=== PATIENT | male | born 2000 | race Two or more races ===

== ENCOUNTER → 2019-12-23 09:28 | Outpatient (BNVA) | payer OTHER, SELFPAY | PROVIDERS: PCP Pediatrics; Referring Provider Pediatrics; Visit Provider Surgery | DX: L05.91 Pilonidal cyst without abscess (principal); E66.01 Morbid (severe) obesity due to excess calories | CPT/HCPCS: 99203 ==

== ENCOUNTER 2020-01-14 08:47 | Day surgery (SDC) | payer OTHER, SELFPAY ==
[2020-01-10 19:43] VITALS: BMI 56.5
--- NOTE | 2020-01-13 09:42 | HO.ANESPROP2 ---
Documented by User: Dari Ku 01/13/20 09:42 HPI - Anesthesia Eval Consult details Narrative: 19yo M for pilonidal cyst [facility] Past Medical History Medical History Morbid obesity Severe sleep apnea Family History Family History (Updated 12/21/19 @ 09:51 by CHRISTINA Rangel) Father History of stroke Asthma Mother Anemia Discoid lupus Arthritis Hypertension Brother Overweight Surgical History Surgical History History of dental surgery (~2004) Social History Social History Alcohol intake: never Smoking Status: Never smoker Second Hand Smoke Exposure: No Use of substances other than those prescribed or required for medical reasons: No Advance Directives: No Advance Directives Information Provided: No Advance Directives on File: No Recently lost weight without trying: No Meds Allergies Allergy/AdvReac Type Severity Reaction Status Date / Time tramadol [TRAMADOL] Allergy Severe ANAPHYLAXIS, Verified 01/10/20 19:49 hives, and closes throat ketorolac [From TORADOL] Allergy Unknown RASH TACHY Verified 01/10/20 19:49 Home Medications Medication Instructions Recorded Confirmed Type fluticasone propionate 50 1 spray INTRANASAL DAILY 12/23/19 01/10/20 History mcg/actuation nasal spray,suspension loratadine 10 mg tablet 10 mg PO DAILY 12/23/19 01/10/20 History Exam Exam Date and Time: January 13, 2020 0942 Height,Weight and Vital Signs: Height 5 ft 5 in Weight 154.221 kg Assessment and Plan Assessment Anesthesia Assessment: Chart Reviewed Documented by User: Malachi Hardy 01/14/20 10:53 [facility] Past Medical History Medical History Morbid obesity Severe sleep apnea Family History Family History (Updated 12/21/19 @ 09:51 by CHRISTINA Rangel) Father History of stroke Asthma Mother Anemia Discoid lupus Arthritis Hypertension Brother Overweight Surgical History Surgical History History of dental surgery (~2004) Social History Social History Alcohol intake: never Smoking Status: Never smoker Second Hand Smoke Exposure: No Use of substances other than those prescribed or required for medical reasons: No Advance Directives: No Advance Directives Information Provided: No Advance Directives on File: No Recently lost weight without trying: No Meds Allergies Allergy/AdvReac Type Severity Reaction Status Date / Time tramadol [TRAMADOL] Allergy Severe ANAPHYLAXIS, Verified 01/10/20 19:49 hives, and closes throat ketorolac [From TORADOL] Allergy Unknown RASH TACHY Verified 01/10/20 19:49 Home Medications Medication Instructions Recorded Confirmed Type fluticasone propionate 50 1 spray INTRANASAL DAILY 12/23/19 01/10/20 History mcg/actuation nasal spray,suspension loratadine 10 mg tablet 10 mg PO DAILY 12/23/19 01/10/20 History Exam Airway Mallampati Class: III TM Dist: >3cm Neck ROM: Full Heart: RRR Assessment and Plan Final Anesthetic Review NPO: Yes ASA Class: III Anesthetic Plan Anesthetic Plan: GA Disposition: Standard PACU
[2020-01-14 09:04] VITALS: BP 149/98; PULSE 122; RESP 18; TEMP 36.2; O2SAT 95
[2020-01-14] MEDS: ceFAZolin Sodium/Dextrose,Iso 2 GM/50 ML PIGGYBACK IV (09:46)
[2020-01-14] MEDS: Lactated Ringers 1,000 ML 80 ML IVCONT (09:46)
--- NOTE | 2020-01-14 10:36 | MHC.SHP ---
Pre-Procedural Eval Section B Chief Complaint: Pilonidal Cyst without abscess Allergies: Allergies Allergy/AdvReac Type Severity Reaction Status Date / Time tramadol [TRAMADOL] Allergy Severe ANAPHYLAXIS, Verified 01/10/20 19:49 hives, and closes throat ketorolac [From TORADOL] Allergy Unknown RASH TACHY Verified 01/10/20 19:49 Plan Patient has been examined and remains a candidate for the planned procedure
--- NOTE | 2020-01-14 12:03 | PM.OP ---
Brief Operative Note Date of procedure: 01/14/20 Pre-op diagnosis: pilonidal cyst, sacrococcygeal Post-op diagnosis: same Procedure: exc of pilonidal cyst sacrococcygeal area Surgeon: Linus Maynard MD Anesthesia: GETA Greeter Guest Services: Lien Anderson Estimated blood loss (mL): 20 Pathology: other (pilonidal cyst) Condition: stable Disposition: PACU
[2020-01-14 12:18] VITALS: BP 142/86; PULSE 109; RESP 20; TEMP 36.1; O2SAT 98
[2020-01-14 12:23] VITALS: BP 137/84; PULSE 111; RESP 20; O2SAT 98
[2020-01-14 12:27] VITALS: BP 146/98; PULSE 109; RESP 20; O2SAT 97
[2020-01-14 12:32] VITALS: BP 144/98; PULSE 109; RESP 18; O2SAT 97
[2020-01-14 12:50] VITALS: BP 140/91; PULSE 108; RESP 18; TEMP 36.1; O2SAT 95
--- NOTE | 2020-01-14 15:33 | OP_ITS ---
SURGEON: Linus Maynard MD INDICATIONS: The patient is a 19-year-old male with an area of recurrent pain, swelling, and drainage on the sacrococcygeal area consistent with a pilonidal cyst. In view of this, he wanted to proceed with excision. He understood the technique of excision under anesthesia. He was aware of the risks, benefits, and alternatives. PREOPERATIVE DIAGNOSIS: Pilonidal cyst, sacrococcygeal area. POSTOPERATIVE DIAGNOSIS: Pilonidal cyst, sacrococcygeal area. PROCEDURE PERFORMED: Excision of pilonidal cyst, sacrococcygeal area. ESTIMATED BLOOD LOSS: COMPLICATIONS: ANESTHESIA: ASSISTANTS: Lien Anderson PA-C. SPECIMENS: DESCRIPTION OF PROCEDURE: He was placed in prone position in the operating room under general anesthesia via endotracheal tube. The buttocks were retracted at the area of sacrococcyx, retracted with wide tape laterally. The perianal area was prepped and draped in usual sterile fashion. A surgical time-out was done. The patient received 3 g of cefazolin. The examination of the sacrococcygeal area revealed 2 sinuses, 1 sinus just a little bit to the left of the midline and another one caudal to this. There was note of midline pits as well. There was note of induration in the area. I marked a planned line of incision using a pen. I infiltrated this area with lidocaine 1%. I made an elliptical incision on the skin using blade #15, it was carried down to full-thickness skin and subcutaneous fat to excise the entire indurated area. I used electrocautery to divide across the thick subcutaneous tissue to excise the entire diseased tissues and sinuses. This was sent as specimen. The incision measured about 7 cm longitudinally and about 4 cm wide. I created flaps on both area using a thick fat and skin by undermining this using electrocautery. I copiously irrigated. There was note of a bleeder in the subcutaneous layer, which we cauterized with electrocautery. Once hemostasis was ensured, I proceeded to then reapposed the thick subcutaneous fat using Dexon 3-0 interrupted sutures. The skin incision was closed with nylon 2-0 vertical mattress sutures alternating with simple interrupted sutures. The incision was then infiltrated with Marcaine 0.5% for postop analgesia. Dressings were applied. He tolerated procedure well. There were no complications noted. Estimated blood loss about 10 mL. The patient was extubated without difficulty and transferred to recovery room with stable vital signs. MD ANGEL Nelson/DICK / [id number]
== END 2020-01-14 13:30 | disposition home or self-care (01) ==
PROVIDERS: Visit Provider Surgery
PROC: (CPT 11771; principal; 2020-01-14 10:50)
DX: L05.91 Pilonidal cyst without abscess (principal); G47.39 Other sleep apnea; E66.01 Morbid (severe) obesity due to excess calories; Z88.8 Allergy status to other drugs, medicaments and biological substances; Z79.51 Long term (current) use of inhaled steroids; Z79.899 Other long term (current) drug therapy
CPT/HCPCS: 11771; 88304; J0131; J0330; J0690; J1100; J2250; J2405; J3010

== ENCOUNTER 2021-08-10 23:11 | Emergency (ER) | payer OTHER, SELFPAY ==
--- NOTE | 2021-08-10 | ECG_ITS ---
Test Reason : CHEST PAIN Blood Pressure : / mmHG Vent. Rate : 101 BPM Atrial Rate : 101 BPM P-R Int : 116 ms QRS Dur : 082 ms QT Int : 326 ms P-R-T Axes : 041 041 013 degrees QTc Int : 422 ms Sinus tachycardia Otherwise normal ECG No previous ECGs available Referred By: Generic ED Physician Electronically Signed By:Mau Meza
--- NOTE | ~2021-08-10 | XR_ITS ---
EXAMINATION: XR CHEST CLINICAL INFORMATION: Cough COMPARISON: 07/20/2015 TECHNIQUE: 2 views of the chest were obtained. FINDINGS: No significant abnormality is noted involving the heart, lungs, mediastinum, bony thorax or soft tissues. XR/XR chest 2V IMPRESSION: Unremarkable examination.
--- NOTE | ~2021-08-10 | CT_ITS ---
EXAMINATION: CT ANGIOGRAM OF THE CHEST WITH AND WITHOUT CONTRAST (CT PULMONARY ANGIOGRAM FOR PE) CLINICAL INFORMATION: Reason for Exam R sided pleuritic pain elevated ddimer COMPARISON: Chest x-ray 08/10/2021 TECHNIQUE: Prior to contrast administration, noncontrast localization images were obtained. Subsequently, multidetector volumetric imaging was performed from the thoracic inlet to below the diaphragms following the administration of 100 mL Omnipaque 350 intravenous contrast. No contrast reaction reported Sagittal, coronal, and MIP oblique sagittal reformatted images were obtained on the CT workstation, uploaded to PACS, and reviewed. This CT examination was performed using dose optimization techniques as appropriate, variously including the following: *Automated exposure control *Adjustment of mA and/or kV according to patient size (this includes techniques or standardized protocols for targeted exams where dose is matched to indication/reason for exam; i.e. extremities or head) *Use of iterative reconstruction technique Total exam dose-length product 920 mGy-cm FINDINGS: QUALITY OF STUDY/CONTRAST BOLUS: Suboptimal. PULMONARY ARTERIES: No central or proximal segmental pulmonary emboli. Assessment of the more distal vasculature is limited due to bolus timing. THORACIC AORTA: No aneurysm or dissection. LUNG: Scattered patchy groundglass opacities are present bilaterally, most prominently in the left upper lobe and right middle lobe. There is a subpleural right middle lobe nodule measuring 4 mm on image 256/473. PLEURA: No pneumothorax or pleural effusion. MEDIASTINUM: Visualized thyroid gland is unremarkable. Mildly prominent hilar lymph nodes are suspected. Cardiac size is within normal limits; no pericardial effusion. No evidence of septal bowing or right heart strain. CHEST WALL/AXILLA: No axillary or internal mammary lymphadenopathy. OSSEOUS STRUCTURES: No acute or suspicious osseous abnormality. UPPER ABDOMEN: Unremarkable. No reflux of contrast into the hepatic veins to suggest elevated right heart pressures. CT/CT angio chest PE protocol IMPRESSION: 1. No pulmonary embolus identified, though assessment of the distal vasculature is limited due to suboptimal bolus timing. 2. Scattered patchy groundglass opacities bilaterally, most prominently in the left upper and right middle lobes, suggesting an infectious/inflammatory etiology. 3. Right middle lobe subpleural 4 mm lung nodule, statistically likely benign in the absence of clinical risk factors. VTE: negative
[2021-08-10 23:19] VITALS: BP 156/94; PULSE 104; RESP 16; TEMP 36.3; O2SAT 97; BMI 59.9
[2021-08-10 23:36] LABS: Basophils Percent Auto 0.2 % (0-2); Eosinophils Absolute Auto 0.5 X10*3/uL (0.0-0.4); Eosinophils Percent Auto 5.9 % (0-4); Hematocrit 41.7 % (42.0-52.0); Imm Gran Abs Auto 0.03 X10*3/uL (0.00-0.03); Imm Gran Pct Auto 0.3 % (0.0-0.4); Lymphocytes Absolute Auto 3.4 X10*3/uL (1.2-4.9); Lymphocytes Percent Auto 37.7 % (20-40); MANUAL DIFF FLAG NO; Mean Corpuscular HGB Conc 33.6 g/dl (31.0-36.0); Mean Corpuscular Hemoglobin 28.8 pg (27.0-33.0); Mean Corpuscular Volume 85.8 fL (80.0-98.0); Mean Platelet Volume 9.4 fL (9.4-12.4); Monocytes Absolute Auto 1.1 X10*3/uL (0.1-1.2); Monocytes Percent Auto 12.8 % (2-11); Neutrophils Absolute Auto 3.8 x10*3/uL (2.0-8.3); Neutrophils Percent Auto 43.1 % (45-73); Platelet Count 249 X10*3/uL (160-400); Red Blood Count 4.86 X10*6/uL (4.60-5.80); Red Cell Distribution Width 12.9 % (11.0-16.0); White Blood Count 8.9 X10*3/uL (4.8-10.8)
[2021-08-10 23:55] LABS: Alanine Aminotransferase 38 U/L (0-40); Alkaline Phosphatase 83 U/L (39-117); Anion Gap 12 (12-20); Aspartate Amino Transferase 39 U/L (5-37); Bilirubin Total 0.2 mg/dL (0.0-1.0); Blood Urea Nitrogen 8 mg/dL (9-16); Calcium 8.5 mg/dL (8.4-10.2); Carbon Dioxide 28 mmol/L (22-29); Chloride 103 mmol/L (96-108); Creatinine Clr Calc Pharmacy 164.2; Estimated Glomerular Filt Rate > 60; Glucose Random 99 mg/dL (60-115); Potassium 3.8 mmol/L (3.3-5.1); Sodium 139 mmol/L (135-145); Total Protein 7.1 g/dL (6.5-8.0)
[2021-08-10 23:58] LABS: Troponin-I High Sensitivity < 3.5 ng/L (<3.5-35.0)
--- NOTE | 2021-08-11 01:16 | ED_ITS ---
HPI - Chest Pain General Chief Complaint: Upper Respiratory Symptoms Stated Complaint: chest pain & cough Time Seen by Provider: 08/10/21 23:24 Source: patient Mode of arrival: ambulatory Limitations: no limitations History of Present Illness MD complaint: chest pain (cough) Onset (ago): day(s) (4) Timing of current episode: episodic Prior episodes: No Onset: during rest (coughing) Pain location: right chest Severity: moderate Quality: sharp Relieving factors: nothing Exacerbating factors: inspiration and other (coughing) Associated symptoms: dyspnea and cough Treatment prior to arrival: none Related Data Previous Rx's Medication Instructions Recorded azithromycin 250 mg tablet See Rx Instructions PO .COMPLEX #6 08/10/21 tab azithromycin 250 mg tablet See Rx Instructions .ROUTE 08/11/21 .COMPLEX #6 tab prednisone 20 mg tablet 60 mg PO DAILY 5 Days #15 tab 08/11/21 Allergies Allergy/AdvReac Type Severity Reaction Status Date / Time tramadol [TRAMADOL] Allergy Severe ANAPHYLAXIS, Verified 08/10/21 15:58 hives, and closes throat ketorolac [From TORADOL] Allergy Unknown RASH TACHY Verified 08/10/21 15:58 Review of Systems Review of Systems: Constitutional : No Weight loss, No Fever, No Chills ENT/Mouth : No sore throat, No Rhinorrhea Eyes: No Eye Pain, No Swelling Cardiovascular : pos Chest Pain, pos SOB, no Dyspnea on Exertion, No Orthopnea, No Edema, No Palpitations Respiratory : pos Cough, No Sputum Gastrointestinal : pos Nausea, No Vomiting, No Diarrhea, No abdominal Pain, No Hematochezia, No Melena Genitourinary : No Dysuria, No Urinary Frequency Musculoskeletal : No joint pain, No Myalgias, No Joint Swelling Skin : No Skin Lesions, No rash Neuro : No Weakness, No Numbness, No Dizziness, No Headache Psych : No Anxiety/Panic, No Depression Heme/Lymph: No Bruising, No Lymphadenopathy Endocrine : No Polyuria, No Polydipsia All other systems reviewed and are negative [facility] Past Medical History Attestation statement: The following information was validated with the patient. Medical History Morbid obesity Severe sleep apnea Surgical History History of dental surgery (~2004) Family History Family History (Updated 12/14/20 @ 13:48 by Otilia Golden Angela) Father History of stroke Asthma Mother Anemia Discoid lupus Arthritis Hypertension Brother Overweight Social History Social History Housing: House Alcohol intake: never Patient Tobacco Use Status: Never used Tobacco e-Cigarette/Vaping Use: Never Used Second Hand Smoke Exposure: No Advance Directives: No Advance Directives Information Provided: No service: No Current occupational status: employed Physical Exam Vital Signs: Vital Signs: Last Vital Signs Temp 99.1 F 08/11/21 02:00 Pulse 100 08/11/21 02:00 Resp 16 08/11/21 02:00 BP 152/100 H 08/11/21 02:00 Pulse Ox 96 08/11/21 02:00 BMI result Body Mass Index 59.9 Appearance: Alert. Oriented X3. No acute distress. Eyes: Pupils equal, round and reactive to light. ENT: Pharynx normal. Neck: Normal inspection. Neck supple. CVS: Normal heart rate and rhythm. Pulses normal. Respiratory: No respiratory distress. Breath sounds normal. Abdomen: Soft and nontender. Obese Skin: Skin warm and dry. Normal skin color. Normal skin turgor. Extremities: No lower extremity edema. No calf ttp Neuro: Oriented X 3. No motor deficit. No sensory deficit. Course Course Course Narrative: ddimer above threshold - CTA ordered no PE, COVID negative though some GGO MDM - Chest Pain MDM Narrative Medical decision making narrative: 21 yo male hx of obesity, seasonal allergies not on medications comes in with c/o R sided pleuritic chest pain and cough - will need troponin x 1 given symptoms > 6 hours, CXR< EKG and ddimer given obesity if negative will treat as possible bronchitis given sputum production. Dispo per results and findings. Lab Data Result diagrams: 08/10/21 23:27 08/10/21 23:27 Labs: Lab Results 08/10/21 08/10/21 08/10/21 Range/Units 23:27 23:27 23:27 WBC 8.9 (4.8-10.8) X10*3/uL RBC 4.86 (4.60-5.80) X10*6/uL Hgb 14.0 (14.0-18.0) g/dl Hct 41.7 L (42.0-52.0) % MCV 85.8 (80.0-98.0) fL MCH 28.8 (27.0-33.0) pg MCHC 33.6 (31.0-36.0) g/dl RDW 12.9 (11.0-16.0) % Plt Count 249 (160-400) X10*3/uL MPV 9.4 (9.4-12.4) fL Immature Gran % (Auto) 0.3 (0.0-0.4) % Neut % (Auto) 43.1 L (45-73) % Lymph % (Auto) 37.7 (20-40) % [place] % (Auto) 12.8 H (2-11) % Eos % (Auto) 5.9 H (0-4) % Baso % (Auto) 0.2 (0-2) % Lymph # (Auto) 3.4 (1.2-4.9) X10*3/uL [place] # (Auto) 1.1 (0.1-1.2) X10*3/uL Eos # (Auto) 0.5 H (0.0-0.4) X10*3/uL Baso # (Auto) 0.0 (0.0-0.2) X10*3/uL Abs Immat Gran (auto) 0.03 (0.00-0.03) X10*3/uL Absolute Neuts (auto) 3.8 (2.0-8.3) x10*3/uL Absolute Nucleated RBC 0.000 (0.0-0.012) X10*3/uL Nucleated RBC % (auto) 0.0 (0.0-0.2) /100WBC D-Dimer High Sensitivty NG/ML Sodium 139 (135-145) mmol/L Potassium 3.8 (3.3-5.1) mmol/L Chloride 103 (96-108) mmol/L Carbon Dioxide 28 (22-29) mmol/L Anion Gap 12 (12-20) BUN 8 L (9-16) mg/dL Creatinine 1.02 (0.5-1.4) mg/dL Estim Creat Clear Calc 164.2 Estimated GFR > 60 Random Glucose 99 (60-115) mg/dL Calcium 8.5 (8.4-10.2) mg/dL Total Bilirubin 0.2 (0.0-1.0) mg/dL AST 39 H (5-37) U/L ALT 38 (0-40) U/L Alkaline Phosphatase 83 (39-117) U/L Troponin I High Sens < 3.5 (<3.5-35.0) ng/L Total Protein 7.1 (6.5-8.0) g/dL Albumin 4.0 (3.5-5.0) g/dL COVID-19 ([facility]) (Negative) COVID-19 Clin Com 08/11/21 08/11/21 Range/Units 01:29 01:45 WBC (4.8-10.8) X10*3/uL RBC (4.60-5.80) X10*6/uL Hgb (14.0-18.0) g/dl Hct (42.0-52.0) % MCV (80.0-98.0) fL MCH (27.0-33.0) pg MCHC (31.0-36.0) g/dl RDW (11.0-16.0) % Plt Count (160-400) X10*3/uL MPV (9.4-12.4) fL Immature Gran % (Auto) (0.0-0.4) % Neut % (Auto) (45-73) % Lymph % (Auto) (20-40) % [place] % (Auto) (2-11) % Eos % (Auto) (0-4) % Baso % (Auto) (0-2) % Lymph # (Auto) (1.2-4.9) X10*3/uL [place] # (Auto) (0.1-1.2) X10*3/uL Eos # (Auto) (0.0-0.4) X10*3/uL Baso # (Auto) (0.0-0.2) X10*3/uL Abs Immat Gran (auto) (0.00-0.03) X10*3/uL Absolute Neuts (auto) (2.0-8.3) x10*3/uL Absolute Nucleated RBC (0.0-0.012) X10*3/uL Nucleated RBC % (auto) (0.0-0.2) /100WBC D-Dimer High Sensitivty 293 NG/ML Sodium (135-145) mmol/L Potassium (3.3-5.1) mmol/L Chloride (96-108) mmol/L Carbon Dioxide (22-29) mmol/L Anion Gap (12-20) BUN (9-16) mg/dL Creatinine (0.5-1.4) mg/dL Estim Creat Clear Calc Estimated GFR Random Glucose (60-115) mg/dL Calcium (8.4-10.2) mg/dL Total Bilirubin (0.0-1.0) mg/dL AST (5-37) U/L ALT (0-40) U/L Alkaline Phosphatase (39-117) U/L Troponin I High Sens (<3.5-35.0) ng/L Total Protein (6.5-8.0) g/dL Albumin (3.5-5.0) g/dL COVID-19 ([facility]) Negative (Negative) COVID-19 Clin Com See Note ECG Data ECG #1: Attestation: I personally reviewed and interpreted this ECG as follows: ECG interpretation date: 08/11/21 ECG interpretation time: 01:18 Interpretation: Rate: 101 Rhythm: sinus tachycardia [place]: normal Normal P waves. Normal FARRAH. Normal QRS complex. ST T wave : normal no YUE qTC: normal prior studies: no acute ischemia The study has been interpreted contemporaneously by me. Discharge Plan Discharge Clinical Impression: Bronchitis Patient Disposition: Home, Self-Care Instructions: Acute Bronchitis (ED) Additional Instructions: return to ED for any worsening symptoms or concerns repeat COVID test in 2 days return for any difficulty breathing or worsening of symptoms Prescriptions: New azithromycin 250 mg tablet See Rx Instructions .ROUTE .COMPLEX Qty: 6 0RF Rx Instructions: For 250 mg dose pack: take 500 mg today (day 1), then 250 mg for 4 days (days 2-5) prednisone 20 mg tablet 60 mg PO DAILY 5 Days Qty: 15 0RF No Action azithromycin 250 mg tablet See Rx Instructions PO .COMPLEX Qty: 6 0RF Rx Instructions: take 500 mg today (day 1), then 250 mg for 4 days (days 2-5) PO Referrals: Babar Garcia MD [Primary Care Provider] - 2 days (if not better) Stand Alone Forms: Work/School Release
[2021-08-11 02:00] VITALS: BP 152/100; PULSE 100; RESP 16; TEMP 37.3; O2SAT 96
[2021-08-11 02:04] LABS: D Dimer High Sensitivity 293 NG/ML
[2021-08-11 02:11] LABS: COVID-19 Test Negative (Negative); IDNOW Serial# 9DB6401D
[2021-08-11] MEDS: iohexoL 350 MG/ML 100 ML INFUS..BTL IV (03:15)
[2021-08-11 03:58] VITALS: BP 149/96; PULSE 85; RESP 18; TEMP 37.1; O2SAT 98
== END 2021-08-11 03:59 | disposition home or self-care (01) ==
PROVIDERS: Emergency Provider Emergency Medicine; PCP Internal Medicine
DX: J40 Bronchitis, not specified as acute or chronic (principal); R07.81 Pleurodynia; R07.89 Other chest pain; R05.9 Cough, unspecified; Z20.822 Contact with and (suspected) exposure to COVID-19; Z79.899 Other long term (current) drug therapy
CPT/HCPCS: 36415; 71046; 71275; 80053; 84484; 85025; 85379; 87635; 93005; 99283; 99284; Q9967

== ENCOUNTER 2021-11-03 01:29 | Emergency (ER) | payer OTHER, SELFPAY ==
[2021-11-03 01:45] VITALS: BP 142/89; PULSE 107; RESP 14; O2SAT 95; BMI 59.9
[2021-11-03 01:46] VITALS: BP 142/89; PULSE 100; RESP 16; O2SAT 96
[2021-11-03 02:00] VITALS: RESP 16
--- NOTE | 2021-11-03 02:07 | ED_ITS ---
HPI - Ear Problem General Chief complaint: Ear Problems Stated complaint: L ear infection, discomfort post antibiotics Time Seen by Provider: 11/03/21 01:34 Source: patient Limitations: no limitations History of Present Illness HPI Narrative: This is a 21-year-old male who was diagnosed several days ago with left otitis media. The patient was put on a Z-Stevenson states initially seemed to improve but then got worse again with continued left ear pain. Has had some headache. He denies any fever. He denies any nasal congestion or sore throat. He denies any nausea vomiting. Denies any cough shortness of breath Related Data Previous Rx's Medication Instructions Recorded azithromycin 250 mg tablet See Rx Instructions PO .COMPLEX #6 10/26/21 tabs amoxicillin 500 mg capsule 1,000 mg PO TID 7 days #42 caps 11/03/21 Allergies Allergy/AdvReac Type Severity Reaction Status Date / Time tramadol [TRAMADOL] Allergy Severe ANAPHYLAXIS, Verified 10/26/21 16:15 hives, and closes throat ketorolac [From TORADOL] Allergy Unknown RASH TACHY Verified 10/26/21 16:15 Review of Systems Constitutional: Constitutional: Reports as per HPI and Reports headache(s) Eyes: Eyes: Reports no additional eye complaints ENT: Reports as per HPI and Reports headache(s) Cardiovascular: Cardiovascular: Reports no additional cardiovascular complaints Respiratory: Respiratory: Reports no additional respiratory complaints Gastrointestinal: Gastrointestinal: Reports as per HPI Neurologic: Reports headache(s) [facility] Past Medical History Medical History Morbid obesity Severe sleep apnea Surgical History History of dental surgery (~2004) Family History Family History (Updated 12/14/20 @ 13:48 by CHRISTINA Quintero) Father History of stroke Asthma Mother Anemia Discoid lupus Arthritis Hypertension Brother Overweight Social History Social History Housing: House Alcohol intake: current Alcohol intake frequency: holidays/special occasions only Patient Tobacco Use Status: Never used Tobacco e-Cigarette/Vaping Use: Never Used Second Hand Smoke Exposure: No Use of substances other than those prescribed or required for medical reasons: No Advance Directives: No service: No Current occupational status: employed Physical Exam Vital Signs: Vital Signs: Last Vital Signs Pulse 100 11/03/21 01:46 Resp 16 11/03/21 02:00 BP 142/89 H 11/03/21 01:46 Pulse Ox 96 11/03/21 01:46 O2 Del Method 11/03/21 01:46 BMI result Body Mass Index 59.9 Const: Other: Obese, in no distress. General: cooperative and healthy appearing Nutritional Appearance: well nourished Orientation/consciousness: patient oriented x3 Limitations: no limitations HEENT: Other: Left tympanic membrane is erythematous and dull. Dry cerumen in the auditory canal, no moist discharge. No tenderness to the mastoid. No preauricular swelling or adenopathy. Head: Yes normal to inspection Eyes: General: appearance normal, both eyes and all related structures Neck: Neck: Yes normal visual inspection Chest: Chest palpation & inspection: normal palpation of entire chest wall Resp: Effort & Inspection: normal respiratory effort Neuro: General: patient oriented x3 MDM - Ear MDM Narrative Medical decision making narrative: Patient with persistent left otitis media, despite Zithromax treatment. Will treat with amoxicillin 1000 mg t.i.d.. Patient can take acetaminophen for pain. Discharge Plan Discharge Clinical Impression: Acute left otitis media Patient Disposition: Home, Self-Care Instructions: Ear Infection (ED) Additional Instructions: Take the amoxicillin as prescribed. Use acetaminophen for pain. Follow up with primary care physician as needed. Prescriptions: New amoxicillin 500 mg capsule 1,000 mg PO TID 7 Days Qty: 42 0RF No Action azithromycin 250 mg tablet See Rx Instructions PO .COMPLEX Qty: 6 0RF Rx Instructions: take 500 mg today (day 1), then 250 mg for 4 days (days 2-5) PO Interventions: ED Discharge Assessment Last Done: 11/03/21 02:20 Discharge Date/Time: 11/03/21 02:21
[2021-11-03] MEDS: Amoxicillin 500 MG CAPSULE 1000 MG PO (02:10)
== END 2021-11-03 02:21 | disposition home or self-care (01) ==
PROVIDERS: Emergency Provider Emergency Medicine; PCP Internal Medicine
DX: H66.92 Otitis media, unspecified, left ear (principal); E66.01 Morbid (severe) obesity due to excess calories; Z68.43 Body mass index [BMI] 50.0-59.9, adult
CPT/HCPCS: 99283; 99284

== ENCOUNTER 2023-09-28 18:52 | Emergency (ER) | payer OTHER, SELFPAY ==
--- NOTE | ~2023-09-28 | XR_ITS ---
EXAMINATION: XR CHEST CLINICAL INFORMATION: Shortness of breath, cough, fever. COMPARISON: Chest x-ray August 10, 2021 TECHNIQUE: 2 views of the chest were obtained. FINDINGS: No significant abnormality is noted involving the heart, lungs, mediastinum, bony thorax or soft tissues. XR/XR chest 2V IMPRESSION: Unremarkable examination.
[2023-09-28 19:11] VITALS: BP 157/108; PULSE 133; RESP 20; TEMP 37.2; O2SAT 95; BMI 69.9
--- NOTE | 2023-09-28 19:12 | ED_ITS ---
HPI - URI/Sore Throat General Chief Complaint: Upper Respiratory Symptoms Stated Complaint: sore throat cough fever Time Seen by Provider: 09/28/23 20:45 Source: patient Mode of arrival: ambulatory Limitations: no limitations History of Present Illness ED Provider: Dr. Charanjit Amaya HPI Narrative: 23-year-old male with no significant past medical history who presents emergency department for evaluation of fever, chills, productive cough, sore throat, shortness of breath and pleuritic chest pain x5 days. The patient states that his cough is productive of thick yellow mucus, he has not seen any blood in the mucus. States his cough has been persistent in his getting worse. He has had subjective fever and chills. He had rhinorrhea and sore throat. He states he does have shortness of breath at rest and shortness of breath with exertion. Patient also complains of myalgias and arthralgias. Related Data Previous Rx's ?Medication ?Instructions ?Recorded fluconazole 200 mg tablet 200 mg PO Q7D PRN rash 4 weeks #4 01/05/22 tabs nystatin 100,000 unit/gram topical 1 appl topical BID PRN rash #30 01/05/22 powder (Nystop) grams amoxicillin 500 mg capsule 1,000 mg (2 x 500 mg) PO TID 5 09/28/23 days #30 caps ibuprofen 400 mg tablet 400 mg PO TID PRN fever or pain 09/28/23 #30 tabs Allergies Allergy/AdvReac Type Severity Reaction Status Date / Time tramadol [TRAMADOL] Allergy Severe ANAPHYLAXIS, Verified 09/28/23 19:11 hives, and closes throat ketorolac [From TORADOL] Allergy Unknown RASH TACHY Verified 09/28/23 19:11 Review of Systems 2 Review of Systems: Yes all other systems are reviewed and are negative [facility] Past Medical History [facility] Narrative: Social history: He denies tobacco use. He occasionally drinks alcohol. He denies drug use. Medical History Morbid obesity Severe sleep apnea Surgical History History of dental surgery (~2004) Family History Family History Father History of stroke Asthma Mother Anemia Discoid lupus Arthritis Hypertension Brother Overweight Social History Social History Housing: House Alcohol intake: current Alcohol intake frequency: holidays/special occasions only Patient Tobacco Use Status: Never used Tobacco e-Cigarette/Vaping Use: Never Used Second Hand Smoke Exposure: No Advance Directives: No Advance Directives Information Provided: Yes service: No Current occupational status: employed Physical Exam 2 Vital Signs: Vital Signs: Last Vital Signs Temp 99.0 F 09/28/23 20:31 Pulse 128 H 09/28/23 20:31 Resp 16 09/28/23 20:31 BP 171/107 H 09/28/23 20:31 Pulse Ox 96 09/28/23 20:31 O2 Del Method Room Air 09/28/23 20:31 BMI result Body Mass Index 69.9 Vital signs revealed an elevated heart rate of 128 and elevated blood pressure of 171/107. O2 saturation was 96% on room air which is normal Exam: General: Awake, alert in no distress, weight was 190 kg elevated BMI of 69.9 kilograms/meters sclera Head: Normocephalic, atraumatic EENT: PERRL, Lids normal, sclera normal, conjunctiva normal, nose normal , ears normal, throat without erythema or exudates Neck: Supple, no adenopathy Lung: breath sounds symmetric, no wheezing, rales or rhonchi Chest: symmetric movement, nontender Heart: regular rate and rhythm, normal S1, S2 no murmurs or rubs Abdomen: soft, non-tender, nondistended, normal bowel sounds Back: no vertebral tenderness, no CVAT Extremities: no deformities, moves all extremities symmetrically Neuro: Awake, alert, oriented, normal speech, cranial nerves intact, moves all extremities symmetrically Psych: Pleasant, cooperative Course Course Course Narrative: This is a Rapid Medical Examination (RME) performed by Jasmyne Glover PA-C in triage. Full HPI, ROS, assessment and treatment plan per primary provider in the Main ED. 23 yo male with history of morbid obesity (BMI 70) presents to the ER for evaluation of cough, fevers to 101, runny nose, and chest pains. no known sick contacts. no LE swelling. speaking in complete sentences in triage. tachycardic to 130s. Plan: CXR, EKG, covid swab Medical Decision Making Medical Decision Making [facility] Narrative: 23-year-old male with no significant past medical history who presents emergency department for 5 days of upper respiratory symptoms with associated fever, chills, chest pain, shortness of breath, dyspnea on exertion myalgias and arthralgias. Vital signs did reveal an elevated blood pressure and elevated heart rate otherwise unremarkable. The patient's exam was normal. Differential diagnosis: ?Includes but is not limited to pneumonia, bronchitis, viral syndrome, COVID-19, strep throat, anemia, electrolyte abnormalities Following evaluation was ordered: CBC, CMP, troponin, lipase, COVID-19, rapid strep, chest x-ray two view Patient was initially treated with the following: Amoxicillin 1000 mg orally, ibuprofen 400 mg orally Course: 21:05 My interpretation patient's laboratory evaluation is as follows: CBC was normal. CMP was normal. Troponin was below detectable limits. Lipase was negative. COVID-19 was negative. Rapid strep was negative. Patient's presentation is consistent with acute bronchitis. I did discuss viral versus bacterial infections with the patient and through shared decision making the patient will be started on amoxicillin 1000 mg 3 times a day for 5 days and ibuprofen 400 mg 3 times a day as needed for chest pain. Patient was given printed and verbal instructions and discharged home. Admission/Observation Consideration of admission/observation: Escalation of care including admission/observation considered Lab Data [facility] Lab Attestation statement: I reviewed the patient's lab results. 09/28/23 19:24 09/28/23 19:24 Labs: Lab Results 09/28/23 Range/Units 19:24 WBC 10.3 (4.8-10.8) X10*3/uL RBC 4.75 (4.60-5.80) X10*6/uL Hgb 13.8 L (14.0-18.0) g/dl Hct 40.4 L (42.0-52.0) % MCV 85.1 (80.0-98.0) fL MCH 29.1 (27.0-33.0) pg MCHC 34.2 (31.0-36.0) g/dl RDW 13.2 (11.0-16.0) % Plt Count 277 (160-400) X10*3/uL MPV 9.3 L (9.4-12.4) fL Immature Gran % (Auto) 0.6 H (0.0-0.4) % Neut % (Auto) 57.0 (45-73) % Lymph % (Auto) 28.8 (20-40) % [place] % (Auto) 8.9 (2-11) % Eos % (Auto) 4.4 H (0-4) % Baso % (Auto) 0.3 (0-2) % Lymph # (Auto) 3.0 (1.2-4.9) X10*3/uL [place] # (Auto) 0.9 (0.1-1.2) X10*3/uL Eos # (Auto) 0.5 H (0.0-0.4) X10*3/uL Baso # (Auto) 0.0 (0.0-0.2) X10*3/uL Abs Immat Gran (auto) 0.06 H (0.00-0.03) X10*3/uL Absolute Neuts (auto) 5.9 (2.0-8.3) x10*3/uL Absolute Nucleated RBC 0.000 (0.0-0.012) X10*3/uL Nucleated RBC % (auto) 0.0 (0.0-0.2) /100WBC Sodium 139 (135-145) mmol/L Potassium 3.9 (3.3-5.1) mmol/L Chloride 104 (96-108) mmol/L Carbon Dioxide 26 (22-29) mmol/L Anion Gap 13 (12-20) BUN 10 (9-16) mg/dL Creatinine 0.94 (0.5-1.4) mg/dL Estim Creat Clear Calc 193.8 Estimated GFR > 60 Random Glucose 112 (60-115) mg/dL Calcium 9.3 D (8.4-10.2) mg/dL Magnesium 2.1 (1.6-2.6) mg/dL Total Bilirubin 0.3 (0.0-1.0) mg/dL Direct Bilirubin < 0.1 (0.0-0.5) mg/dL AST 35 (5-37) U/L ALT 39 (0-40) U/L Alkaline Phosphatase 90 (39-117) U/L Troponin I High Sens < 2.7 (<3.5-35.0) ng/L B-Natriuretic Peptide < 10 (<100) pg/mL Total Protein 7.8 (6.5-8.0) g/dL Albumin 4.1 (3.5-5.0) g/dL COVID-19 (AGUILAR) Negative (Negative) COVID-19 Clin Com See Note S. pyogenes GrpA FRANCINE Negative (Negative) Radiology Impression Discussion of test interpretation with radiology: I have reviewed the radiologist's reading. Radiologist Impression: XR chest 2V IMPRESSION: Unremarkable examination. Dictated By: Jassi Browning MD Prescription Management I considered prescription management with: Pain Medication and Antibiotic Chronic Conditions Patient?s care impacted by: Other (Morbid obesity) Discharge Plan Discharge Clinical Impression: Acute bronchitis, Pleuritic chest pain Patient Disposition: Home, Self-Care Instructions: Acute Bronchitis (ED) Additional Instructions: Your blood work was normal. Your COVID-19, and rapid strep tests were negative. Your chest x-ray was unremarkable, I did not see any evidence for pneumonia on this study. Your symptoms are consistent with inflammation and infection of your breathing tubes (bronchials) and this is called bronchitis. Bronchitis can be caused by a bacteria or a virus. I am going to treat you for possible bacterial infection with amoxicillin 500 mg pills, 2 pills 3 times a day for 5 days. Your pain is related inflammation of your chest from your infection. Take the anti-inflammatory medication ibuprofen, 400 mg 3 times a day as needed for pain. Follow-up with your doctor in 2 days. Please return to the emergency department if your symptoms get worse or if you develop any symptoms that are concerning to you. Please see the work note Prescriptions: New amoxicillin 500 mg capsule 1,000 mg PO TID 5 Days Qty: 30 0RF ibuprofen 400 mg tablet 400 mg PO TID PRN (Reason: fever or pain) Qty: 30 0RF No Action fluconazole 200 mg tablet 200 mg PO Q7D PRN (Reason: rash) 28 Days Qty: 4 0RF Rx Instructions: Take once a week for up to 4 weeks as needed for ongoing rash. nystatin [Nystop] 100,000 unit/gram powder 1 appl topical BID PRN (Reason: rash) Qty: 30 1RF Stand Alone Forms: Work/School Release Print Language: [place]
--- NOTE | 2023-09-28 19:14 | ECG_ITS ---
Test Reason : SOB Blood Pressure : / mmHG Vent. Rate : 125 BPM Atrial Rate : 125 BPM P-R Int : 120 ms QRS Dur : 080 ms QT Int : 302 ms P-R-T Axes : 043 041 025 degrees QTc Int : 435 ms Sinus tachycardia Otherwise normal ECG When compared with ECG of 10-AUG-2021 23:16, No significant change was found Referred By: Soheila Glvoer Electronically Signed By:Mau Meza
[2023-09-28 19:31] LABS: MANUAL DIFF FLAG NO
[2023-09-28 19:38] LABS: Basophils Percent Auto 0.3 % (0-2); Eosinophils Absolute Auto 0.5 X10*3/uL (0.0-0.4); Eosinophils Percent Auto 4.4 % (0-4); Hematocrit 40.4 % (42.0-52.0); Hemoglobin 13.8 g/dl (14.0-18.0); Imm Gran Abs Auto 0.06 X10*3/uL (0.00-0.03); Imm Gran Pct Auto 0.6 % (0.0-0.4); Lymphocytes Percent Auto 28.8 % (20-40); Mean Corpuscular HGB Conc 34.2 g/dl (31.0-36.0); Mean Corpuscular Hemoglobin 29.1 pg (27.0-33.0); Mean Corpuscular Volume 85.1 fL (80.0-98.0); Mean Platelet Volume 9.3 fL (9.4-12.4); Monocytes Absolute Auto 0.9 X10*3/uL (0.1-1.2); Monocytes Percent Auto 8.9 % (2-11); Neutrophils Absolute Auto 5.9 x10*3/uL (2.0-8.3); Platelet Count 277 X10*3/uL (160-400); Red Blood Count 4.75 X10*6/uL (4.60-5.80); Red Cell Distribution Width 13.2 % (11.0-16.0); White Blood Count 10.3 X10*3/uL (4.8-10.8)
[2023-09-28 19:44] LABS: IDNOW Serial# 08D9AD1C; Strep A Nucleic Acid Negative (Negative)
[2023-09-28 19:45] LABS: COVID-19 Test Negative (Negative); IDNOW Serial# 152EDE1D
[2023-09-28 20:02] LABS: Alanine Aminotransferase 39 U/L (0-40); Albumin Level 4.1 g/dL (3.5-5.0); Alkaline Phosphatase 90 U/L (39-117); Anion Gap 13 (12-20); Aspartate Amino Transferase 35 U/L (5-37); Bilirubin Direct < 0.1 mg/dL (0.0-0.5); Bilirubin Total 0.3 mg/dL (0.0-1.0); Blood Urea Nitrogen 10 mg/dL (9-16); Calcium 9.3 mg/dL (8.4-10.2); Carbon Dioxide 26 mmol/L (22-29); Chloride 104 mmol/L (96-108); Creatinine Clr Calc Pharmacy 193.8; Estimated Glomerular Filt Rate > 60; Glucose Random 112 mg/dL (60-115); Magnesium 2.1 mg/dL (1.6-2.6); Potassium 3.9 mmol/L (3.3-5.1); Sodium 139 mmol/L (135-145); Total Protein 7.8 g/dL (6.5-8.0)
[2023-09-28 20:03] LABS: B Type Natriuretic Peptide < 10 pg/mL (<100)
[2023-09-28 20:14] LABS: Troponin-I High Sensitivity < 2.7 ng/L (<3.5-35.0)
[2023-09-28 20:31] VITALS: BP 171/107; PULSE 128; RESP 16; TEMP 37.2; O2SAT 96
--- NOTE | 2023-09-28 20:33 | MHC.EDTECH ---
this tech took over care at this time, pt changed into hospital gown and vitals taken
[2023-09-28] MEDS: Amoxicillin 500 MG CAPSULE 1000 MG PO (21:23)
[2023-09-28] MEDS: Ibuprofen 400 MG TABLET PO (21:23)
[2023-09-28 21:26] VITALS: BP 157/111; PULSE 123; RESP 18; TEMP 37; O2SAT 95
[2023-09-28 21:34] VITALS: BP 157/111; PULSE 123; RESP 18; TEMP 37; O2SAT 95
== END 2023-09-28 21:35 | disposition home or self-care (01) ==
PROVIDERS: Physician Assistant; Emergency Provider Emergency Medicine Emergency Medical Services; PCP Family Medicine
DX: J20.9 Acute bronchitis, unspecified (principal); R07.89 Other chest pain; R06.02 Shortness of breath; R00.0 Tachycardia, unspecified; R50.9 Fever, unspecified; Z11.52 Encounter for screening for COVID-19
CPT/HCPCS: 36415; 71046; 80048; 80076; 83735; 83880; 84484; 85025; 87635; 87651; 93005; 99283; 99285

== ENCOUNTER → 2023-09-28 19:14 | Outpatient (BNV) | payer OTHER, SELFPAY | PROVIDERS: Emergency Provider Emergency Medicine Emergency Medical Services; PCP Family Medicine; Visit Provider Internal Medicine Cardiovascular Disease | DX: R06.02 Shortness of breath (principal) | CPT/HCPCS: 93010 ==